=== PATIENT | female | born 1995 | race Caucasian/White ===

== ENCOUNTER 2023-06-16 16:30 | Emergency (ER) | payer OTHER, SELFPAY ==
[2023-06-16 16:31] VITALS: BP 147/96; PULSE 116; RESP 18; TEMP 36.9; O2SAT 97; BMI 40.1
--- NOTE | 2023-06-16 16:37 | PC.NURSE ---
Ruben MANZO at BS for pt eval
--- NOTE | 2023-06-16 16:44 | ED_ITS ---
<Statement entered by Sandy Bailon MD - 06/16/23 22:20> I was consulted by the CLARA, and we discussed the complexity of the problems being addressed. I approved the treatment and management plan for this patient's care in the emergency department, thus performing a substantive portion of the medical decision making. Sandy Bailon MD, KELY, FACEP Discharge Plan Disposition Patient Disposition: Home, Self-Care Condition: Good Prescriptions Prescriptions: New amoxicillin-pot clavulanate 875-125 mg tablet 1 tab PO BID Qty: 20 0RF Referrals Follow up/Referrals: Eduard Desir MD [Physician] - See instructions Maine Scott MD [Primary Care Provider] - See instructions Activity Restrictions/Add. Instructions Additional Instructions/Restrictions: Please take medication as prescribed. Please stop taking doxycycline. Please call in the morning to make an appointment with ear nose and throat. Return to the emergency department as needed for any worsening or change in your symptoms. Clinical Impressions Clinical Impression: Otitis media Discharge ED Provider: Sandy Bailon General Adult HPI General Chief complaint: Ear Stated complaint: pain in left ear Time Seen by Provider: 06/16/23 16:36 Mode of Arrival: Ambulatory Limitations: No Limitations Description of Symptoms (Recalled from ER Triage Doc. by RN): PT C/O LEFT EAR PAIN, STARTED AT 1300 TODAY, REPORTS MUFFLED HEARING. NO DISCHARGE. REPORTED 101 FEVER, DID TAKE TYLENOL AND SUDAFED History of Present Illness HPI narrative: Patient presents for evaluation of acute onset of left ear pain. Patient gives a 5-day history of symptoms of her upper respiratory tract infection. She saw her PCP this week and was prescribed doxycycline. Patient also reports a low- grade fever of 100.1 this morning for which she took Tylenol. Patient was driving home from work today and she went over an abrupt elevation change and felt a sharp pain in her left ear shooting down into her left maxilla. She did not lose hearing and did not feel any drainage out of her ear. She denies chills hemoptysis hematochezia melena nausea vomit diarrhea shortness of breath. Related Data Previous Rx's Medication Instructions Recorded amoxicillin 875 mg-potassium 1 tab PO BID #20 tabs 06/16/23 clavulanate 125 mg tablet Allergies Allergy/AdvReac Type Severity Reaction Status Date / Time latex Allergy Verified 06/16/23 17:02 [facility] Disclaimer: The information contained in this section may have been updated after the patient was seen, as this information can be updated by other users. Social History Smoking Status: Unknown if ever smoked alcohol intake: never current occupational status: employed Travel in the last 8 weeks: None ROS Obtained: Yes Systems reviewed as appropriate & no additional complaints except as documented Physical Exam General General appearance: alert and in no apparent distress Head Head exam: atraumatic and normocephalic Eye Eye exam: Present normal appearance and EOMI Chest Chest inspection: Present normal inspection and symmetric chest wall rise Respiratory Respiratory exam: Present normal lung sounds bilaterally and respiratory distress Cardiovascular Cardiovascular exam: Present normal rhythm and tachycardia Abdominal Exam Abdominal exam: Present soft; Absent tenderness Extremities Exam Extremities exam: Present normal inspection and full ROM Back Exam Back exam: Present normal inspection and full ROM Neurological Exam Neurological exam: Present alert and oriented X3 Medical Decision Making Medical Records Medical records reviewed: Yes I reviewed the patient's medical records. [place] Inquiry Pt receiving controlled substance: No Vital Signs: 06/16/23 16:31 06/16/23 16:45 Temperature 98.4 F Temperature Source Oral Pulse Rate 116 H Pulse Rate [Radial] 116 H Respiratory Rate 18 Blood Pressure 147/96 H Blood Pressure [Right Arm] 147/96 H Blood Pressure Mean [Right Arm] 113 Blood Pressure Source [Right Arm] Automatic Cuff Blood Pressure Position [Right Arm] Sitting 02 Sat by Pulse Oximetry 97 96 Oxygen Delivery Method Room Air Orders (Tests/Meds): ED MEDICATIONS Discontinued Medications Generic Name Dose Route Start Last Admin Trade Name Freq PRN Reason Stop Dose Admin Amoxicillin/Clavulanate Potassium 1 each 06/16/23 16:57 Amoxicillin/Clavulanate Potassium 875/125mg Tablet PO 06/16/23 16:58 ONCE ONE Dexamethasone 10 mg 06/16/23 16:57 Dexamethasone 4mg Tablet PO 06/16/23 16:58 ONCE ONE Ibuprofen 800 mg 06/16/23 16:59 Ibuprofen 800 Mg Tablet PO 06/16/23 17:00 ONCE ONE Medical Decision Narrative: In summary patient is a 27-year-old female who presents to the emergency department for evaluation of left ear pain. Patient is normotensive with a blood pressure of 147/96 heart rate of 116 O2 sat of 96% on room air with a respiratory rate of 18 upon arrival, and afebrile with a temperature of 98.4. Physical exam is remarkable for a inflamed left tympanic him that has purulent material behind the drum slightly retracted without any drainage in the canal. Patient has boggy nasal mucosa and erythematous, patient has posterior pharynx erythema without exudate, patient is tender to palpation along the anterior cervical chain with shotty nodes. Differential diagnosis includes suppurative otitis media versus eustachian tube dysfunction versus bacterial upper respiratory tract infection versus viral upper respiratory tract infection. Initial interventions include 800 mg of Motrin p.o. 10 mg of Decadron and initial dose of Augmentin 875 mg. Discussed with patient via shared decision making assessment and plan. Given that patient is otherwise hemodynamically stable and is tolerant of p.o. intake we will switch her antibiotic from doxycycline to Augmentin. Will make a referral to her for ear nose and throat for reevaluation, and instructed patient to start taking 1000 mg of Tylenol alternating with 800 mg of Motrin every 4 hours as needed for constitutional symptoms of fever or pain etc. Patient verbalized understanding and agreement. Critical Care Critical Care Time Critical Care Time: No
[2023-06-16 16:45] VITALS: BP 147/96; PULSE 116; O2SAT 96
[2023-06-16] MEDS: DEXAMETHASONE 4MG TABLET 10 MG PO (17:05)
[2023-06-16] MEDS: IBUPROFEN 800 MG TABLET PO (17:05)
[2023-06-16] MEDS: AMOXICILLIN/CLAVULANATE POTASSIUM 875/125MG TABLET 1 EACH PO (17:05)
[2023-06-16 17:13] VITALS: BP 126/95; PULSE 119; RESP 16; TEMP 36.9; O2SAT 97
== END 2023-06-16 17:14 | disposition home or self-care (01) ==
PROVIDERS: Emergency Provider Student in an Organized Health Care Education/Training Program; PCP Family Medicine
DX: H66.92 Otitis media, unspecified, left ear (principal); H92.02 Otalgia, left ear
CPT/HCPCS: 99283

== ENCOUNTER 2024-07-11 19:20 | Emergency (ER) | payer OTHER, SELFPAY ==
--- NOTE | 2024-07-11 19:25 | [facility].EDGENADL ---
Discharge Plan Disposition Patient Disposition: Home, Self-Care Condition: Good Prescriptions Prescriptions: New ondansetron 4 mg tablet,disintegrating 4 mg PO QID PRN (Reason: nausea and vomiting) Qty: 10 0RF No Action bupropion HCl 300 mg tablet extended release 24 hr 150 mg PO DAILY Qty: 30 2RF aripiprazole [Abilify] 5 mg tablet 5 mg PO DAILY Qty: 30 2RF Referrals Follow up/Referrals: Lacy Glaser DO [Primary Care Provider] - See instructions Activity Restrictions/Add. Instructions Additional Instructions/Restrictions: As we discussed please follow-up with your PCP if you have continued new or worsening signs or symptoms but also for referral to a headache specialist. I have sent in some Zofran to your pharmacy. Also recommend taking ibuprofen at the start of the headache. Clinical Impressions Clinical Impression: Migraine Qualifiers: Migraine type: ophthalmoplegic Intractability: not intractable Qualified Code(s): G43.B0 - Ophthalmoplegic migraine, not intractable Print Language Print Language: Luxembour[place] Discharge ED Provider: Rufus Ivory General Adult HPI <LUISA Sorensen - Last Filed: 07/11/24 21:13> General Chief complaint: Headache Stated complaint: Migraine with nausea Time Seen by Provider: 07/11/24 19:25 History of Present Illness HPI narrative: Patient presents for evaluation of a migraine headache. Patient has had ophthalmic migraines with the usual frequency about once a year since her first . However today she has had 3. She has never had a migraine SALAZAR has never seen a headache specialist and has no abortive medications. There is nothing unusual about her presentation today as she had an aura followed by the headache the only difference is that she has had 3 in 1 day which is unusual. Otherwise that she denies any chest pain shortness of breath fever chills hemoptysis hematochezia melena vomiting or diarrhea but she does report nausea. Related Data Previous Rx's ?Medication ?Instructions ?Recorded aripiprazole 5 mg tablet (Abilify) 5 mg PO DAILY #30 tabs 07/11/24 bupropion HCl 300 mg 24 hr tablet, 150 mg (1/2 x 300 mg) PO DAILY #30 07/11/24 extended release tabs ondansetron 4 mg disintegrating 4 mg PO QID PRN nausea and 07/11/24 tablet vomiting #10 tabs Allergies Allergy/AdvReac Type Severity Reaction Status Date / Time latex Allergy Verified 07/08/24 08:08 [facility] <LUISA Sorensen - Last Filed: 07/11/24 21:13> [facility] Disclaimer: The information contained in this section may have been updated after the patient was seen, as this information can be updated by other users. Medical History Generalized anxiety disorder Major depressive disorder Surgical History History of surgery on lower extremity -left femur -she was 4 years old History of -in 2019 Social History Smoking Status: Never smoker second hand exposure: No alcohol intake: never counseling given: No substance use type: denies use counseling given: No current occupational status: employed Travel in the last 8 weeks?: None adopted: No foster care: No household members: spouse housing: house lives independently: Yes marital status: number of children: 1 number of grandchildren: 0 education level: master's degree caffeine: Yes physical activity: none working smoke detector in home: Yes fire extinguisher in home: No carbon monox detector in home: Yes firearms in home: Yes firearms unloaded and locked: Yes do you feel safe at home: Yes victim of physical abuse: No victim of emotional abuse: No victim of sexual abuse: No would you like helpful sources: No Have you lived/traveled outside [place] in past 30 days?: No Contact w/someone who lives/traveled outside US past 30 days?: No Exposure to someone with infectious disease in past 14 days?: No Do you have a fever (greater than 100.4 F or 38 C)?: No Have you tested positive for COVID-19?: No Exposed to someone with COVID-19 in past 14 days?: No Do you have a sore throat?: No Do you have a cough?: No Do you have any weakness?: No Do you have any diarrhea?: No Are you experiencing any unusual bleeding?: No Do you have any muscle aches/pain?: No Do you have any abdominal pain?: No Are you experiencing loss of taste or smell?: No Other Medical History Have you received the Flu Vaccine for this season: No Have you received the Pneumonia Vaccine: No <LUISA Sorensen - Last Filed: 07/11/24 21:13> ROS Obtained: Yes Systems reviewed as appropriate & no additional complaints except as documented Physical Exam <LUISA Sorensen - Last Filed: 07/11/24 21:13> General General appearance: alert and in no apparent distress Head Head exam: atraumatic and normal inspection Eye Eye exam: Present normal appearance, PERRL and EOMI ENT ENT exam: Present normal exam, normal oropharynx and mucous membranes moist Neck Neck exam: Present normal inspection, full ROM and trachea midline; Absent lymphadenopathy Chest Chest inspection: Present normal inspection and symmetric chest wall rise Respiratory Respiratory exam: Present normal lung sounds bilaterally; Absent accessory muscle use Cardiovascular Cardiovascular exam: Present regular rate, normal rhythm, normal heart sounds, +S1 and +S2 Abdominal Exam Abdominal exam: Present soft and normal bowel sounds; Absent tenderness, guarding or rebound Extremities Exam Extremities exam: Present normal inspection and full ROM Neurological Exam Neurological exam: Present alert, oriented X3 and CN II-XII intact Psychiatric Psychiatric exam: Present normal affect and normal mood Skin Skin exam: Present warm, dry and normal color Lymphatic Lymphatic Findings: no adenopathy Medical Decision Making <LUISA Sorensen - Last Filed: 07/11/24 21:13> Medical Records Medical records reviewed: Yes I reviewed the patient's medical records. Screening: Per USPSTF and CDC recommendations, given the prevalence of disease in our region, it is our hospital?s policy to screen for HIV and viral Hepatitis for all patients aged 18 and over and those with ongoing risk factors. [place] Inquiry Pt receiving controlled substance: No Vital Signs: 07/11/24 19:28 07/11/24 19:31 07/11/24 20:58 Temperature 98.7 F 97.9 F Temperature Source Oral Pulse Rate 95 H 88 Pulse Rate [Apical] 95 H Respiratory Rate 18 20 Blood Pressure 141/85 H 135/110 H Blood Pressure [Right Arm] 131/101 H Blood Pressure Mean [Right Arm] 111 02 Sat by Pulse Oximetry 99 97 Oxygen Delivery Method Room Air Room Air Room Air Lab Data Lab results reviewed: Yes I reviewed the patient's lab results. Lab Results 07/11/24 19:58: Serum HCG, Qual Negative Orders (Tests/Meds): ED MEDICATIONS Discontinued Medications Generic Name Dose Route Start Last Admin Trade Name Carrilloq PRN Reason Stop Dose Admin Acetaminophen 1,000 mg 07/11/24 19:34 07/11/24 19:52 Acetaminophen 500mg Tab PO 07/11/24 19:35 1,000 mg ONCE ONE Administration Dexamethasone Sodium Phosphate 10 mg 07/11/24 19:35 07/11/24 19:51 Dexamethasone 4mg/Ml 5ml Mdv IV 07/11/24 19:36 10 mg ONCE ONE Administration Diphenhydramine HCl 25 mg 07/11/24 19:34 07/11/24 19:50 Diphenhydramine 50mg/Ml Vial IV 07/11/24 19:35 25 mg ONCE ONE Administration Lactated Ringer's 1,000 mls @ 999 mls/hr 07/11/24 19:34 07/11/24 19:47 Lactated Ringer's 1000 Ml Bag IV 07/11/24 20:34 999 mls/hr .Q1H1M ONE Administration Magnesium Sulfate 2 gm in 50 mls @ 50 mls/hr 07/11/24 19:34 07/11/24 19:52 Magnesium Sulfate 2gm/50ml Premix IV 07/11/24 20:33 50 mls/hr ONCE ONE Administration Sodium Chloride 1,000 mls @ 999 mls/hr 07/11/24 19:35 Sod Chlor 0.9% 1000ml Bag IV 07/11/24 20:35 .Q1H1M ONE Ketorolac Tromethamine 15 mg 07/11/24 19:34 07/11/24 19:49 Ketorolac 30mg/Ml Vial IV 07/11/24 19:35 15 mg ONCE ONE Administration Metoclopramide HCl 10 mg 07/11/24 19:34 07/11/24 19:49 Metoclopramide Hcl 10mg/2ml Vial IVP 07/11/24 19:35 10 mg ONCE ONE Administration ORDERS Category Date Time Status HCG Qualitative, Serum Stat Lab 07/11/24 19:58 Completed Medical Decision Narrative: In summary patient is a 28-year-old female who presents to the emergency department for evaluation of high-grade headache. Patient is initially hypertensive with a blood pressure 131/101 heart rate 95 with normal sinus rhythm on the bedside monitor breathing 18 times a minute satting at 99% on room air upon arrival, afebrile. Physical exam is remarkable for no nuchal rigidity or meningeal signs full range of motion of her C-spine without pain. Pupils equal round reactive to light [place] Coma Score 15 cranials 2 through 12 intact grossly to exam. Differential diagnosis includes ocular migraine versus complex migraine etc. Initial workup was considered with labs and imaging however as patient has longstanding history of migraine with aura and there is no change in the actual headache pattern just the frequency labs and imaging deferred. Initial interventions include migraine cocktail with crystalloid bolus Tylenol Toradol Benadryl Decadron Reglan and magnesium. . Upon repeat evaluation patient had complete resolution of her headache. Given this patient is appropriate for discharge with prescription for Zofran and recommendation to follow-up with her PCP for referral to a headache specialist given the increasing frequency. Patient verbalized understanding and agreement. Patient given strict return precautions. <Rufus Ivory MD - Last Filed: 07/12/24 15:42> Vital Signs: 07/11/24 19:28 07/11/24 19:31 07/11/24 20:58 Temperature 98.7 F 97.9 F Temperature Source Oral Pulse Rate 95 H 88 Pulse Rate [Apical] 95 H Respiratory Rate 18 20 Blood Pressure 141/85 H 135/110 H Blood Pressure [Right Arm] 131/101 H Blood Pressure Mean [Right Arm] 111 02 Sat by Pulse Oximetry 99 97 Oxygen Delivery Method Room Air Room Air Room Air Lab Data Lab Results 07/11/24 19:58: Serum HCG, Qual Negative Orders (Tests/Meds): ED MEDICATIONS Discontinued Medications Generic Name Dose Route Start Last Admin Trade Name Pretty PRN Reason Stop Dose Admin Acetaminophen 1,000 mg 07/11/24 19:34 07/11/24 19:52 Acetaminophen 500mg Tab PO 07/11/24 19:35 1,000 mg ONCE ONE Administration Dexamethasone Sodium Phosphate 10 mg 07/11/24 19:35 07/11/24 19:51 Dexamethasone 4mg/Ml 5ml Mdv IV 07/11/24 19:36 10 mg ONCE ONE Administration Diphenhydramine HCl 25 mg 07/11/24 19:34 07/11/24 19:50 Diphenhydramine 50mg/Ml Vial IV 07/11/24 19:35 25 mg ONCE ONE Administration Lactated Ringer's 1,000 mls @ 999 mls/hr 07/11/24 19:34 07/11/24 19:47 Lactated Ringer's 1000 Ml Bag IV 07/11/24 20:34 999 mls/hr .Q1H1M ONE Administration Magnesium Sulfate 2 gm in 50 mls @ 50 mls/hr 07/11/24 19:34 07/11/24 19:52 Magnesium Sulfate 2gm/50ml Premix IV 07/11/24 20:33 50 mls/hr ONCE ONE Administration Sodium Chloride 1,000 mls @ 999 mls/hr 07/11/24 19:35 Sod Chlor 0.9% 1000ml Bag IV 07/11/24 20:35 .Q1H1M ONE Ketorolac Tromethamine 15 mg 07/11/24 19:34 07/11/24 19:49 Ketorolac 30mg/Ml Vial IV 07/11/24 19:35 15 mg ONCE ONE Administration Metoclopramide HCl 10 mg 07/11/24 19:34 07/11/24 19:49 Metoclopramide Hcl 10mg/2ml Vial IVP 07/11/24 19:35 10 mg ONCE ONE Administration ORDERS Category Date Time Status HCG Qualitative, Serum Stat Lab 07/11/24 19:58 Completed Medical Decision Narrative: In summary patient is a 28-year-old female who presents to the emergency department for evaluation of high-grade headache. Patient is initially hypertensive with a blood pressure 131/101 heart rate 95 with normal sinus rhythm on the bedside monitor breathing 18 times a minute satting at 99% on room air upon arrival, afebrile. Physical exam is remarkable for no nuchal rigidity or meningeal signs full range of motion of her C-spine without pain. Pupils equal round reactive to light [place] Coma Score 15 cranials 2 through 12 intact grossly to exam. Differential diagnosis includes ocular migraine versus complex migraine etc. Initial workup was considered with labs and imaging however as patient has longstanding history of migraine with aura and there is no change in the actual headache pattern just the frequency labs and imaging deferred. Initial interventions include migraine cocktail with crystalloid bolus Tylenol Toradol Benadryl Decadron Reglan and magnesium. . Upon repeat evaluation patient had complete resolution of her headache. Given this patient is appropriate for discharge with prescription for Zofran and recommendation to follow-up with her PCP for referral to a headache specialist given the increasing frequency. Patient verbalized understanding and agreement. Patient given strict return precautions. I was consulted by the CLARA, and we discussed the complexity of the problems being addressed. I approved the treatment and management plan for this patient's care in the Emergency Department, thus performing a substantive portion of the medical decision making. Rufus Ivory MD Critical Care <LUISA Sorensen - Last Filed: 07/11/24 21:13> Critical Care Time Critical Care Time: No
[2024-07-11 19:28] VITALS: BP 131/101; PULSE 95; RESP 18; TEMP 37.1; O2SAT 99; BMI 41.5
[2024-07-11 19:31] VITALS: BP 141/85; PULSE 95; O2SAT 97
[2024-07-11] MEDS: LACTATED RINGERS 1000ML 1,000 ML 999 ML IV (19:47)
[2024-07-11] MEDS: METOCLOPRAMIDE HCL 10MG/2ML VIAL 10 MG IVP (19:49)
[2024-07-11] MEDS: KETOROLAC 30MG/ML VIAL 15 MG IV (19:49)
[2024-07-11] MEDS: diphenhydrAMINE 50MG/ML VIAL 25 MG IV (19:50)
[2024-07-11] MEDS: DEXAMETHASONE 4MG/ML 5ML MDV 10 MG IV (19:51)
[2024-07-11] MEDS: ACETAMINOPHEN 500MG TAB 1000 MG PO (19:52)
[2024-07-11] MEDS: MAGNESIUM SULFATE IN WATER 2 GM/50 ML PIGGYBACK IV (19:52)
[2024-07-11 20:14] LABS: HCG Qualitative, Serum Negative (Negative)
[2024-07-11 20:58] VITALS: BP 135/110; PULSE 88; RESP 20; TEMP 36.6; O2SAT 98
== END 2024-07-11 21:09 | disposition home or self-care (01) ==
PROVIDERS: Physician Assistant; Emergency Provider Emergency Medicine; PCP Student in an Organized Health Care Education/Training Program
DX: G43.B0 Ophthalmoplegic migraine, not intractable (principal); R11.0 Nausea
CPT/HCPCS: 84703; 96365; 96375; 99284; J1100; J1200; J1885; J2765; J3475; J7120